=== PATIENT | female | born 1965 | race Two or more races ===

== ENCOUNTER 2024-01-08 11:12 | Emergency (ER) | payer OTHER ==
[~2024-01-08] VITALS: Ht 160 cm; Wt 72.6 kg
[2024-01-08] MEDS ORDERED: GUAIFENESIN 200 MG/10 ML BLIST.PACK PO STA (13:00)
[2024-01-08] MEDS ORDERED: CEFTRIAXONE SODIUM 1,000 MG VIAL IM STA (13:01)
[2024-01-08 13:41] LABS: HEMATOCRIT 44.1 % (36.0-45.00); HEMOGLOBIN 15.3 g/dL (12.0-15.00); MEAN CELL VOLUME 92.1 fL (80.00-100.00); MEAN CORPUSCULAR HEMOGLOBIN 31.9 pg (27.00-32.0); MEAN CORPUSCULAR HGB CONC 34.6 g/dl (32.0-36.0); PLATELET COUNT 199 K/uL (150-450); RED BLOOD COUNT 4.78 M/uL (4.00-6.00)
== END 2024-01-08 14:27 | disposition home or self-care (01) ==
LOC: ER 11:12
PROVIDERS: General Practice
DX: J06.9 Acute upper respiratory infection, unspecified (principal); Z20.822 Contact with and (suspected) exposure to COVID-19

== ENCOUNTER 2024-08-28 14:24 | Emergency (ER) | payer OTHER ==
[~2024-08-28] VITALS: Ht 160 cm; Wt 72.6 kg
[2024-08-28] MEDS ORDERED: CEFTRIAXONE SODIUM 1,000 MG VIAL IM STA (17:27)
[2024-08-28] MEDS ORDERED: HYDROCODONE/CHLORPHEN P-STIREX 5 ML ML PO STA (17:27)
== END 2024-08-28 18:46 | disposition home or self-care (01) ==
LOC: ER 14:26
DX: J06.9 Acute upper respiratory infection, unspecified (principal)

== ENCOUNTER → 2024-10-08 09:30 | Outpatient (CLI) | payer OTHER ==
[2024-10-08 11:57] LABS: T4 FREE 0.87 NG/ML (0.76-1.46); TSH 1.21 uIU/mL (0.358-3.74)
== END | disposition home or self-care (01) ==
LOC: LAB 09:30
DX: E03.9 Hypothyroidism, unspecified (principal)

== ENCOUNTER 2024-11-14 09:11 | Outpatient (CLI) | payer OTHER | END 2024-11-14 09:15 | disposition home or self-care (01) | LOC: LAB 09:11 | DX: U07.1 COVID-19 (principal) ==